=== PATIENT | male | born 1980 | race Caucasian/White ===

== ENCOUNTER 2017-06-29 04:11 | Emergency (ER) | payer OTHER ==
[~2017-06-29] VITALS: Ht 180.3 cm; Wt 93.9 kg
[~2017-06-29 04:11] MED LIST: AMOXICILLIN875 MG PO; NOHOMEMEDICATIONS; TOBRASOL5 ML OP; VICODIN 5-5001 EACH PO
[2017-06-29 04:20] VITALS: BP 127/92
== END 2017-06-29 04:32 | disposition home or self-care (01) ==
LOC: M.ERS 04:11
DX: Z00.8 Encounter for other general examination (principal); F17.210 Nicotine dependence, cigarettes, uncomplicated; F10.99 Alcohol use, unspecified with unspecified alcohol-induced disorder

== ENCOUNTER 2020-09-26 20:53 | Emergency (ER) | payer OTHER ==
[~2020-09-26] VITALS: Ht 180.3 cm; Wt 83.5 kg
[2020-09-26 20:59] VITALS: BP 120/75
[2020-09-26 21:23] LABS: URINE BILIRUBIN NEGATIVE (Negative); URINE BLOOD 2+ (Negative); URINE COLOR YELLOW; URINE GLUCOSE-RANDOM NEGATIVE (Negative); URINE KETONES NEGATIVE (Negative); URINE LEUKOCYTES NEGATIVE (Negative); URINE NITRITE NEGATIVE (Negative); URINE PROTEIN NEGATIVE (Negative); URINE SPECIFIC GRAVITY 1.025 (1.005-1.030); URINE UROBILINOGEN 0.2 E.U./dl (0.2-1.0)
[2020-09-26 21:24] LABS: URINE CLARITY SL HAZY
[2020-09-26 21:31] LABS: HEMOGLOBIN 14.9 gm/dL (14.0-18.0); MCH 31.4 pg (26.0-34.0); MCHC 34.6 g/dL (28.0-37.0); MCV 90.8 fL (80.0-100.0); MPV 6.3 fl. (7.2-11.1); RBC 4.74 mil/uL (4.50-6.00); RDW-CV 13.9 % (10.5-14.5)
[2020-09-26 21:33] LABS: AMP/METHAMP POSITIVE (Negative); BARBITURATES Negative (Negative); BENZODIAZEPINES Negative (Negative); COCAINE Negative (Negative); METHADONE Negative (Negative); OPIATES Negative (Negative); PCP Negative (Negative); THC POSITIVE (Negative)
[2020-09-26 21:40] LABS: BACTERIA 1-9 Few /HPF (None Seen); CASTS None Seen /LPF (None Seen); CRYSTALS None Seen /LPF (None Seen); MUCUS 4-6 Moderate strn/LPF (None Seen); SQUAMOUS 0-3 Few /LPF (0-3); URINE RBC 3-10 Few /HPF (0-2); URINE WBC 0-5 Rare /HPF (0-5)
[2020-09-26 21:41] LABS: CALCIUM 8.5 mg/dL (8.5-10.1); CREATININE 1.1 mg/dL (0.6-1.3); POTASSIUM 3.8 mmol/L (3.5-5.1)
[2020-09-26 21:45] LABS: ALBUMIN 4.3 g/dL (3.4-5.0); MAGNESIUM 2.2 mg/dL (1.8-2.4); PHOSPHORUS* 3.6 mg/dL (2.5-4.9); TOTAL BILIRUBIN 0.4 mg/dL (<0.1-1.0)
[2020-09-26 21:48] LABS: ACETAMINOPHEN < 2 ug/mL (10-30); ALCOHOL 156 mg/dL (<10); SALICYLATE 4.2 mg/dL (2.8-20.0)
--- NOTE | 2020-09-27 10:25 | EKG ---
[place] [address] ELECTROCARDIOGRAM REPORT Name: AMISH REYES Room: [facility]#: [id number] Admission: 09/26/20 Attend Phys: Discharge: 09/27/20 Date of : 76 Date of Service: 09/26/202100 Report #: [id number] THIS REPORT FOR: //name// [facility] ED Test Date: 2020-09-26 Test Time: 21:01:43 Pat Name: AMISH REYES Department: Room: Gender: Bsw: : 1980 Requested By: Ronda Mcleod Order Number: [id number] MD: Mehdi Elizabeth Measurements Intervals [place] Rate: 90 P: 58 CA: 174 QRS: 20 QRSD: 102 T: 22 QT: 339 QTc: 415 Interpretive Statements Sinus rhythm No previous ECG available for comparison Electronically Signed On 09-27-2020 10:25:06 CDT by Mehdi Elizabeth [email or web address] <ELECTRONICALLY SIGNED> By: Mehdi Elizabeth MD, [facility] 09/27/201024 00 00 Mehdi Elizabeth MD, FACC /EPI
== END 2020-09-27 00:30 | disposition left against medical advice (07) ==
LOC: M.ERS 20:53
PROVIDERS: Personal Emergency Response Attendant
DX: T39.312A Poisoning by propionic acid derivatives, intentional self-harm, initial encounter (principal); F17.210 Nicotine dependence, cigarettes, uncomplicated; Y92.89 Other specified places as the place of occurrence of the external cause